=== PATIENT | male | born 1960 | race Caucasian/White ===

== ENCOUNTER 2017-11-02 22:48 | Inpatient (IN) ==
[2017-11-02] MEDS ORDERED: NITROGLYCERIN 2% OINT 1 INCH/GM PACK TOP ONE (23:54)
[2017-11-02] MEDS ORDERED: ONDANSETRON 4 MG/2 ML VIAL ONE (23:54)
[2017-11-02] MEDS ORDERED: TICAGRELOR 90 MG TABLET ONE (23:54)
[2017-11-02] MEDS ORDERED: ASPIRIN 325 MG TABLET ONE (23:55)
[2017-11-02] MEDS ORDERED: HEPARIN 5,000 UNIT/1 ML VIAL ONE (23:55)
[2017-11-02] MEDS ORDERED: MORPHINE 2 MG/1 ML SYRINGE ONE (23:55)
[2017-11-02] MEDS: ASPIRIN 325 MG TABLET PO STA (23:58)
[2017-11-02] MEDS: TICAGRELOR 90 MG TABLET PO STA (23:58)
[2017-11-02] MEDS: NITROGLYCERIN 2% OINT 1 INCH/GM PACK TOP STA (23:59)
[2017-11-03] MEDS: HEPARIN 1,000 UNIT/1 ML VIAL IV STA ×2 (00:03→04:33)
[2017-11-03 00:08] LABS: Basophils # 0.1 10*3/uL (0.0-0.2); Basophils % 0.5 % (0.0-0.8); Eosinophils # 0.2 10*3/uL (0.0-0.87); Eosinophils % 1.3 % (0.00-10.9); Hematocrit 45.1 VOL% (42.0-52.0); Hemoglobin 15.8 GM/DL (14.0-18.0); Immature Granulocytes % 0.4 %; Immature Granulocytes Absolute 0.05 #; Lymphocytes # 2.9 10*3/uL (1.4-4.0); Lymphocytes % 22.8 % (21.2-54.2); Mean Corpuscular Hemoglobin 32 PG (27-34); Mean Corpuscular Volume 92.4 FL (87-102); Mean Platelet Volume 9.5 FL (9.6-12.0); Monocytes # 0.8 10*3/uL (0.11-0.8); Neutrophils # 8.8 10*3/uL (1.4-7.4); Platelet Count 301 T/CUMM (130-400); Red Blood Count 4.88 MC/CUMM (3.8-5.5); Red Cell Distribution Width 12.7 % (9.3-17.3); White Blood Count 12.8 T/CUMM (4-12)
[2017-11-03] MEDS ORDERED: MORPHINE 2 MG/1 ML SYRINGE IV STA (00:11)
[2017-11-03] MEDS ORDERED: MORPHINE 2 MG/1 ML SYRINGE ONE (00:11)
[2017-11-03] MEDS ORDERED: HEPARIN/NACL 0.9% 2 UNITS/ML 2,000 ML IV ONE (00:22)
[2017-11-03] MEDS ORDERED: LIDOCAINE 1% 20 ML VIAL ONE ×2 (00:22→00:56)
[2017-11-03 00:25] LABS: Alanine Aminotransferase 20 U/L (16-61); Albumin 3.4 G/DL (3.4-5.0); Alkaline Phosphatase 50 U/L (45-117); Aspartate Amino Transferase 20 U/L (0-37); Bilirubin,Total < 0.39 MG/DL (0.2-1.0); Blood Urea Nitrogen 17 MG/DL (7-18); Calcium 9.5 MG/DL (8.5-10.1); Glucose 76 MG/DL (74-106); Osmolality,Calculated 283.1 MOS/KG (273-304); Potassium 3.7 MMOL/L (3.5-5.1); Sodium 142 MMOL/L (136-145); Total Protein 7.6 G/DL (6.4-8.3)
[2017-11-03] MEDS ORDERED: fentaNYL 100 MCG/2 ML VIAL ONE ×2 (00:29→01:15)
[2017-11-03] MEDS ORDERED: MIDAZOLAM 2 MG/2 ML VIAL ONE ×2 (00:29→00:58)
[2017-11-03] MEDS ORDERED: HEPARIN 5,000 UNIT/1 ML VIAL ONE (00:35)
[2017-11-03] MEDS ORDERED: ATROPINE 1 MG/10 ML SYRINGE ONE (00:44)
[2017-11-03] MEDS ORDERED: DOPamine 800 MG/250 ML PREMIX IV ONE (00:46)
[2017-11-03] MEDS ORDERED: ONDANSETRON 4 MG/2 ML VIAL ONE (00:52)
[2017-11-03] MEDS ORDERED: SODIUM CHLORIDE 0.45% 1,000 ML IV SCH (01:30)
[2017-11-03] MEDS ORDERED: MORPHINE 2 MG/1 ML SYRINGE IV PRN (01:30)
[2017-11-03] MEDS ORDERED: ONDANSETRON 4 MG/2 ML VIAL IV PRN (01:30)
[2017-11-03] MEDS ORDERED: NITROGLYCERIN DRIP 50 MG/250 ML BOTTLE IV ONE (01:45)
[2017-11-03] MEDS ORDERED: ZOLPIDEM 5 MG TABLET PO PRN (01:45)
[2017-11-03] MEDS ORDERED: ACETAMINOPHEN 500 MG TABLET PO PRN (01:45)
[2017-11-03] MEDS ORDERED: ALPRAZolam 0.25 MG TABLET PO PRN (01:46)
[2017-11-03] MEDS ORDERED: NITROGLYCERIN DRIP 50 MG/250 ML BOTTLE IV SCH (02:00)
[2017-11-03] MEDS: ZALEPLON 5 MG CAPSULE PO PRN ×2 (02:49→21:31)
[2017-11-03 04:05] LABS: Basophils % 0.3 % (0.0-0.8); Eosinophils % 0.1 % (0.00-10.9); Hematocrit 36.4 VOL% (42.0-52.0); Hemoglobin 12.7 GM/DL (14.0-18.0); Immature Granulocytes % 0.2 %; Immature Granulocytes Absolute 0.02 #; Lymphocytes # 1.4 10*3/uL (1.4-4.0); Lymphocytes % 14.6 % (21.2-54.2); Mean Corpuscular HGB Conc 34.9 GM/DL (32-36); Mean Corpuscular Hemoglobin 33 PG (27-34); Mean Corpuscular Volume 93.6 FL (87-102); Mean Platelet Volume 9.2 FL (9.6-12.0); Monocytes # 0.5 10*3/uL (0.11-0.8); Monocytes % 5.4 % (1.7-12.7); Neutrophils # 7.5 10*3/uL (1.4-7.4); Neutrophils % 79.4 % (38.7-73.9); Platelet Count 273 T/CUMM (130-400); Red Blood Count 3.89 MC/CUMM (3.8-5.5); Red Cell Distribution Width 12.8 % (9.3-17.3); White Blood Count 9.5 T/CUMM (4-12)
[2017-11-03 04:27] LABS: Risk Ratio 5.17
[2017-11-03] MEDS: ASPIRIN 325 MG TABLET PO STA (04:32)
[2017-11-03] MEDS: ONDANSETRON 4 MG/2 ML VIAL IV STA ×2 (04:33)
[2017-11-03] MEDS: MORPHINE 2 MG/1 ML SYRINGE IV STA ×2 (04:33)
[2017-11-03] MEDS: NITROGLYCERIN 2% OINT 1 INCH/GM PACK TOP STA (04:33)
[2017-11-03] MEDS: TICAGRELOR 90 MG TABLET PO STA (04:34)
[2017-11-03] MEDS: SIMETHICONE CHEW 125 MG TABLET PO PRN ×2 (07:47→12:00)
[2017-11-03 08:05] LABS: Basophils % 0.2 % (0.0-0.8); Hematocrit 37.8 VOL% (42.0-52.0); Hemoglobin 13.4 GM/DL (14.0-18.0); Immature Granulocytes % 0.6 %; Immature Granulocytes Absolute 0.07 #; Lymphocytes # 1.5 10*3/uL (1.4-4.0); Mean Corpuscular HGB Conc 35.4 GM/DL (32-36); Mean Corpuscular Hemoglobin 33 PG (27-34); Mean Corpuscular Volume 92.9 FL (87-102); Mean Platelet Volume 9.4 FL (9.6-12.0); Monocytes # 0.8 10*3/uL (0.11-0.8); Monocytes % 6.6 % (1.7-12.7); Neutrophils # 10.2 10*3/uL (1.4-7.4); Neutrophils % 80.6 % (38.7-73.9); Platelet Count 281 T/CUMM (130-400); Red Blood Count 4.07 MC/CUMM (3.8-5.5); Red Cell Distribution Width 12.8 % (9.3-17.3); White Blood Count 12.6 T/CUMM (4-12)
[2017-11-03 08:38] LABS: Calcium 8.8 MG/DL (8.5-10.1); Osmolality,Calculated 280.4 MOS/KG (273-304); Potassium 4.4 MMOL/L (3.5-5.1)
[2017-11-03] MEDS: TICAGRELOR 90 MG TABLET PO SCH ×2 (11:15→21:32)
[2017-11-03] MEDS: LISINOPRIL 2.5 MG TABLET PO SCH (11:15)
[2017-11-03] MEDS: CARVEDILOL 6.25 MG TABLET PO SCH ×2 (11:15→21:32)
[2017-11-03] MEDS: ASPIRIN EC 81 MG TABLET PO SCH (11:15)
[2017-11-03] MEDS: PANTOPRAZOLE 40 MG TABLET PO SCH (11:15)
[2017-11-03] MEDS: NICOTINE 21 MG/24 HR PATCH TRANSDERM SCH (11:15)
[2017-11-03] MEDS ORDERED: LACTULOSE 20 GM/30 ML UDCUP PO PRN (14:23)
[2017-11-03] MEDS ORDERED: PROMETHAZINE INJ 12.5 MG in SODIUM CHLORIDE 0.9% 50 ML IV PRN (14:47)
[2017-11-03] MEDS ORDERED: guaiFENesin/DM ER 600-30 MG TABLET PO PRN (18:20)
[2017-11-03] MEDS ORDERED: BISACODYL 5 MG TABLET PO PRN (18:20)
[2017-11-03] MEDS: ATORVASTATIN 40 MG TABLET PO SCH (21:32)
[2017-11-04 04:48] LABS: Basophils % 0.2 % (0.0-0.8); Hematocrit 36.7 VOL% (42.0-52.0); Hemoglobin 12.8 GM/DL (14.0-18.0); Immature Granulocytes % 0.5 %; Immature Granulocytes Absolute 0.09 #; Lymphocytes # 1.4 10*3/uL (1.4-4.0); Lymphocytes % 8.1 % (21.2-54.2); Mean Corpuscular HGB Conc 34.9 GM/DL (32-36); Mean Corpuscular Hemoglobin 32 PG (27-34); Mean Corpuscular Volume 92.9 FL (87-102); Mean Platelet Volume 9.6 FL (9.6-12.0); Monocytes # 1.9 10*3/uL (0.11-0.8); Monocytes % 10.9 % (1.7-12.7); Neutrophils # 14.3 10*3/uL (1.4-7.4); Neutrophils % 80.3 % (38.7-73.9); Platelet Count 270 T/CUMM (130-400); Red Blood Count 3.95 MC/CUMM (3.8-5.5); Red Cell Distribution Width 13.1 % (9.3-17.3); White Blood Count 17.8 T/CUMM (4-12)
[2017-11-04 05:25] LABS: Calcium 8.7 MG/DL (8.5-10.1); Osmolality,Calculated 283.3 MOS/KG (273-304); Potassium 3.8 MMOL/L (3.5-5.1)
[2017-11-04] MEDS ORDERED: PANTOPRAZOLE 40 MG VIAL IV SCH (09:00)
[2017-11-04] MEDS: NICOTINE 21 MG/24 HR PATCH TRANSDERM SCH (10:06)
[2017-11-04] MEDS: ASPIRIN EC 81 MG TABLET PO SCH (10:08)
[2017-11-04] MEDS: TICAGRELOR 90 MG TABLET PO SCH ×2 (10:08→20:47)
[2017-11-04] MEDS: CARVEDILOL 6.25 MG TABLET PO SCH ×2 (10:08→20:46)
[2017-11-04] MEDS: PANTOPRAZOLE 40 MG TABLET PO SCH (10:08)
[2017-11-04] MEDS: LISINOPRIL 2.5 MG TABLET PO SCH (10:08)
[2017-11-04] MEDS ORDERED: diphenhydrAMINE CAP 25 MG CAPSULE PO PRN (14:27)
[2017-11-04] MEDS ORDERED: MAGNESIUM HYDROXIDE SUSP 30 ML UDCUP PO PRN (14:28)
[2017-11-04] MEDS: ZALEPLON 5 MG CAPSULE PO PRN (20:47)
[2017-11-04] MEDS: ATORVASTATIN 40 MG TABLET PO SCH (20:47)
[2017-11-05 06:37] LABS: Hemoglobin 12.2 GM/DL (14.0-18.0); Red Blood Count 3.81 MC/CUMM (3.8-5.5); White Blood Count 18.6 T/CUMM (4-12)
[2017-11-05 06:38] LABS: Basophils % 0.2 % (0.0-0.8); Eosinophils % 0.1 % (0.00-10.9); Hematocrit 35.3 VOL% (42.0-52.0); Immature Granulocytes % 0.5 %; Lymphocytes # 1.9 10*3/uL (1.4-4.0); Mean Corpuscular HGB Conc 34.6 GM/DL (32-36); Mean Corpuscular Hemoglobin 32 PG (27-34); Mean Corpuscular Volume 92.7 FL (87-102); Mean Platelet Volume 9.9 FL (9.6-12.0); Monocytes # 1.9 10*3/uL (0.11-0.8); Monocytes % 10.5 % (1.7-12.7); Neutrophils # 14.6 10*3/uL (1.4-7.4); Neutrophils % 78.7 % (38.7-73.9); Platelet Count 258 T/CUMM (130-400); Red Cell Distribution Width 13.1 % (9.3-17.3)
[2017-11-05 07:19] LABS: Calcium 8.9 MG/DL (8.5-10.1); Magnesium 2.1 MG/DL (1.8-2.4); Osmolality,Calculated 283.3 MOS/KG (273-304); Potassium 3.8 MMOL/L (3.5-5.1)
[2017-11-05 07:20] LABS: Troponin I Only 31.8 NG/ML (0.00-0.045)
[2017-11-05] MEDS: ENOXAPARIN 40 MG/0.4 ML SYRINGE SUBCUT SCH (07:22)
[2017-11-05] MEDS: TICAGRELOR 90 MG TABLET PO SCH ×2 (09:00→21:33)
[2017-11-05] MEDS: CARVEDILOL 6.25 MG TABLET PO SCH ×2 (09:00→21:33)
[2017-11-05] MEDS: PANTOPRAZOLE 40 MG TABLET PO SCH (09:01)
[2017-11-05] MEDS: LISINOPRIL 2.5 MG TABLET PO SCH (09:01)
[2017-11-05] MEDS: ASPIRIN EC 81 MG TABLET PO SCH (09:01)
[2017-11-05] MEDS: NICOTINE 21 MG/24 HR PATCH TRANSDERM SCH (09:08)
[2017-11-05] MEDS: ATORVASTATIN 40 MG TABLET PO SCH (21:33)
[2017-11-06 06:01] LABS: Basophils % 0.2 % (0.0-0.8); Eosinophils % 0.3 % (0.00-10.9); Hematocrit 33.6 VOL% (42.0-52.0); Hemoglobin 11.6 GM/DL (14.0-18.0); Immature Granulocytes % 0.6 %; Immature Granulocytes Absolute 0.09 #; Lymphocytes # 1.6 10*3/uL (1.4-4.0); Lymphocytes % 10.9 % (21.2-54.2); Mean Corpuscular HGB Conc 34.5 GM/DL (32-36); Mean Corpuscular Hemoglobin 32 PG (27-34); Mean Corpuscular Volume 92.1 FL (87-102); Monocytes # 1.7 10*3/uL (0.11-0.8); Neutrophils # 11.6 10*3/uL (1.4-7.4); Platelet Count 264 T/CUMM (130-400); Red Blood Count 3.65 MC/CUMM (3.8-5.5); Red Cell Distribution Width 12.8 % (9.3-17.3)
[2017-11-06] MEDS: ENOXAPARIN 40 MG/0.4 ML SYRINGE SUBCUT SCH (06:40)
[2017-11-06 07:39] VITALS: BP 107/73
[2017-11-06] MEDS: LISINOPRIL 2.5 MG TABLET PO SCH (08:37)
[2017-11-06] MEDS: CARVEDILOL 6.25 MG TABLET PO SCH (08:37)
[2017-11-06] MEDS: TICAGRELOR 90 MG TABLET PO SCH (08:37)
[2017-11-06] MEDS: NICOTINE 21 MG/24 HR PATCH TRANSDERM SCH (08:37)
[2017-11-06] MEDS: PANTOPRAZOLE 40 MG TABLET PO SCH (08:37)
[2017-11-06] MEDS: ASPIRIN EC 81 MG TABLET PO SCH (08:37)
== END 2017-11-06 13:00 | disposition home or self-care (01) | DRG 247 ==
LOC: EDBD → N.EDINP 22:48 → N.ED 22:48 → N.CVR 11-03 00:23 → N.SDSINP 11-03 01:38 → N.ICU 11-03 11:52 → N.TELEN 11-05 12:52
PROVIDERS: ADMIT Internal Medicine Cardiovascular Disease; ATTEND Internal Medicine Cardiovascular Disease
PROC: CLCCHCL (ICD-10-PCS; 2017-11-03 01:15)